=== PATIENT | female | born 1995 | race Caucasian/White ===

== ENCOUNTER 2024-03-15 00:45 | Inpatient (IN) | payer OTHER ==
[2024-03-15] MEDS: LACTATED RINGERS SOLUTION 500 ML IV ONE ×2 (01:40→02:40)
[2024-03-15 02:11] LABS: BASO % 0.3 % (0-2.0); EOS % 0.5 % (0-4.5); HEMATOCRIT 35.6 % (32.4-45.2); HEMOGLOBIN 11.9 GM/dL (10.7-15.3); LYMPH % 12.2 % (8-40); MCH 29.7 pg (25.7-33.7); MCHC 33.4 g/dl (32.0-36.0); MEAN CELL VOLUME 88.8 fl (80-96); MEAN PLT VOLUME 8.9 fl (7.5-11.1); MONO % 8.4 % (3.8-10.2); NEUT % 78.6 % (42.8-82.8); PLATELET COUNT 233 10^3/uL (134-434); RBC 4.01 M/mm3 (3.60-5.2); RDW 13.5 % (11.6-15.6); WHITE BLOOD COUNT 11.1 K/mm3 (4.0-10.0)
[2024-03-15 02:18] LABS: INR 0.95 (0.83-1.09); PROTHROMBIN TIME (PATIENT) 10.8 SEC (9.7-13.0)
[2024-03-15 02:21] LABS: ACTIVATED PTT 27.4 SECONDS (25.2-36.5)
[2024-03-15 02:32] LABS: RETICULOCYTES 1.32 % (0.5-1.5)
[2024-03-15] MEDS ORDERED: BUTORPHANOL TARTRATE 2 MG/ML VIAL ONE (03:42)
[2024-03-15] MEDS ORDERED: PROMETHAZINE HCL 25 MG/1 ML VIAL ONE (03:42)
[2024-03-15] MEDS: PROMETHAZINE HCL 25 MG/1 ML VIAL IVPB ONE (03:50)
[2024-03-15] MEDS: BUTORPHANOL TARTRATE 2 MG/ML VIAL IVPB ONE (03:50)
[2024-03-15 03:55] LABS: POTASSIUM 4.3 mmol/L (3.5-5.1)
[2024-03-15 03:58] LABS: ALBUMIN 2.7 g/dl (3.4-5.0); BLOOD UREA NITROGEN 9.4 mg/dL (7-18); CALCIUM 9.3 mg/dL (8.5-10.1)
[2024-03-15 04:01] LABS: CREATININE 0.6 mg/dL (0.55-1.3); URIC ACID 5.3 mg/dL (2.6-7.2)
[2024-03-15 04:03] LABS: BILIRUBIN,TOTAL 0.3 mg/dL (0.2-1); TOT PROT 6.4 g/dl (6.4-8.2)
[2024-03-15 04:14] VITALS: BMI 34.3
[2024-03-15] MEDS: LACTATED RINGERS SOLUTION 1,000 ML IV SCH (06:00)
[2024-03-15] MEDS ORDERED: FENTANYL/BUPIVACAINE/NS/PF - PCEA - 50 ML DISP.SYRIN EP ONE (06:54)
[2024-03-15] MEDS ORDERED: BUPIVACAINE HCL/PF 0.25% (2.5MG/ML) 10 ML VIAL ONE (07:14)
[2024-03-15] MEDS: FENTANYL/BUPIVACAINE/NS/PF - PCEA - 50 ML DISP.SYRIN EP SCH (07:30)
[2024-03-15] MEDS ORDERED: NALOXONE HCL 0.4 MG/ML VIAL IVPUSH PRN (07:38)
[2024-03-15] MEDS ORDERED: morphine SULFATE/PF 1 MG/2 ML (2cc Syringe - QUVA) ONE (08:37)
[2024-03-15] MEDS ORDERED: FENTANYL CITRATE/PF 50 MCG/ML VIAL ONE (08:38)
[2024-03-15] MEDS ORDERED: LIDO 2%/EPI 1:200000 PRESRVFRE (20 ML SDVIAL) ONE (08:39)
[2024-03-15] MEDS ORDERED: OXYTOCIN 30 UNITS in 0.9% NS 30 UNIT/500 ML INFUS.BAG IVPB ONE (08:39)
[2024-03-15] MEDS ORDERED: AZITHROMYCIN IVPB 500 MG/250 ML BAG IVPB ONE (08:56)
[2024-03-15] MEDS ORDERED: ceFAZolin SODIUM 1 GM VIAL ONE ×2 (08:56→08:57)
[2024-03-15] MEDS ORDERED: OXYTOCIN 10 UNITS/ML VIAL ONE (09:02)
[2024-03-15] MEDS ORDERED: METHYLERGONOVINE MALEATE 0.2 MG/1 ML AMP IM PRN (09:45)
[2024-03-15] MEDS ORDERED: ELECTROLYTE-148 SOLN 1,000 ML IV SCH (09:45)
[2024-03-15] MEDS ORDERED: ONDANSETRON 4 MG/2 ML VIAL IVPUSH PRN (09:45)
[2024-03-15] MEDS ORDERED: ACETAMINOPHEN 1000 MG/100 ML BAG IVPB PRN (09:46)
[2024-03-15 09:55] LABS: CORD HCO3 23.8 mmHg (20-29); CORD PCO2 59.5 mmHg (30-78)
[2024-03-15 09:56] LABS: CORD BASE EXCESS -5.1 mmol/L (0-2); CORD HCO3 21.8 mmHg (20-29); CORD PCO2 46.6 mmHg (30-78); CORD pH 7.287 (7.14-7.44)
[2024-03-15] MEDS: OXYTOCIN 20 UNITS in 0.9% NS 20 UNIT/1,000 ML INFUS.BAG IV SCH (10:00)
[2024-03-15] MEDS: morphine SULFATE/PF 1 MG/2 ML (2cc Syringe - QUVA) EP ONE (12:52)
[2024-03-15] MEDS: PRENATAL VITAMINS W/ FOLIC ACID TABLET (FP) PO SCH (12:53)
[2024-03-15] MEDS: IBUPROFEN 800 MG/8 ML IJ IVPB PRN (16:01)
[2024-03-15] MEDS: FERROUS SO4 325 MG TABLET (FP) PO SCH (19:01)
[2024-03-15] MEDS: IBUPROFEN 600 MG TABLET (FP) PO PRN (21:18)
[2024-03-15] MEDS ORDERED: oxyCODONE HCL 5 MG TABLET PO PRN ×2 (21:46)
[2024-03-16 08:14] VITALS: RESP 18
[2024-03-16 08:52] LABS: BASO % 0.3 % (0-2.0); EOS % 0.3 % (0-4.5); HEMATOCRIT 31.4 % (32.4-45.2); HEMOGLOBIN 10.4 GM/dL (10.7-15.3); LYMPH % 13.7 % (8-40); MCH 29.7 pg (25.7-33.7); MEAN CELL VOLUME 90.1 fl (80-96); MEAN PLT VOLUME 8.2 fl (7.5-11.1); MONO % 5.8 % (3.8-10.2); NEUT % 79.9 % (42.8-82.8); PLATELET COUNT 216 10^3/uL (134-434); RBC 3.48 M/mm3 (3.60-5.2); RDW 13.5 % (11.6-15.6); WHITE BLOOD COUNT 11.3 K/mm3 (4.0-10.0)
[2024-03-16] MEDS ORDERED: BISACODYL 10 MG SUPP.RECT RC PRN (09:46)
[2024-03-16] MEDS: SIMETHICONE 80 MG TAB.CHEW (FP) PO PRN (10:06)
[2024-03-16] MEDS: LABETALOL HCL 200 MG TABLET (FP) PO ONE (19:42)
[2024-03-17] MEDS: ACETAMINOPHEN 325 MG TABLET (FP) PO PRN (08:33)
[2024-03-18 07:27] LABS: BASO % 0.4 % (0-2.0); HEMOGLOBIN 10.7 GM/dL (10.7-15.3); LYMPH % 20.8 % (8-40); MCH 30.2 pg (25.7-33.7); MCHC 33.3 g/dl (32.0-36.0); MEAN CELL VOLUME 90.8 fl (80-96); MEAN PLT VOLUME 8.3 fl (7.5-11.1); NEUT % 70.8 % (42.8-82.8); PLATELET COUNT 248 10^3/uL (134-434); RBC 3.52 M/mm3 (3.60-5.2); RDW 13.7 % (11.6-15.6); WHITE BLOOD COUNT 7.4 K/mm3 (4.0-10.0)
[2024-03-18 10:26] VITALS: BP 113/73; PULSE 86; TEMP 98.4
== END 2024-03-18 13:05 | disposition home or self-care (01) | DRG 540 ==
LOC: JDEL 00:45 → JLDR 03:40 → J3W 14:30
PROVIDERS: ADMIT Obstetrics & Gynecology; ATTEND Obstetrics & Gynecology
PROC: 10D00Z1 Extraction of Products of Conception, Low, Open Approach (ICD-10-PCS; principal; 2024-03-15)
DX: O48.0 Post-term pregnancy (principal); O76 Abnormality in fetal heart rate and rhythm complicating labor and delivery; Z3A.40 40 weeks gestation of pregnancy; Z37.0 Single live birth
CPT/HCPCS: 36415; 36600; 59025; 80053; 82803; 82977; 83010; 84550; 85025; 85045; 85610; 85730; 86780; 86850; 86900; 86901; 88307-TC